=== PATIENT | male | born 1945 | race Two or more races ===

== ENCOUNTER 2021-02-11 20:40 | Emergency (ER) | payer MEDICARE, OTHER ==
[~2021-02-11] VITALS: Ht 182.9 cm; Wt 80.3 kg
--- NOTE | 2021-02-11 20:50 | NUR ---
BIBDAUGHTER FROM HOME WITH C/C OF CHEST PAIN FOR A WHOLE DAY THAT RADIATE TO LEFT ARM WITH NUMBNESS, CHEST PAIN NEVER RELIEVED BY NITRO X1 3 HOURS AGO FROM HOME, PT IS AA/O X4 NO SIGN OF RESPIRATORY DISTRESS ABLE TO WALK, HOOKED TO MONITOR AND P OX WILL CONT TO MONITOR
--- NOTE | 2021-02-11 21:10 | NUR ---
LAB AT BED SIDE BLOOD DRAW DONE
[2021-02-11] MEDS ORDERED: NITROGLYCERIN 0.4 MG/TAB BOTTLE ONE (21:21)
[2021-02-11] MEDS ORDERED: ASPIRIN 81 MG TAB.CHEW ONE (21:21)
[2021-02-11 21:22] LABS: BASOPHILS # (AUTO) 0.1 K/uL (0.0-0.2); BASOPHILS % (AUTO) 0.9 % (0.0-2.0); EOSINOPHILS % (AUTO) 3.6 % (0.0-6.0); HEMATOCRIT 40 % (39-51); HEMOGLOBIN 13.5 g/dL (13.5-17.5); LYMPHOCYTES # (AUTO) 1.5 K/uL (0.8-4.8); LYMPHOCYTES % (AUTO) 22.9 % (20.0-44.0); MEAN CORPUSCULAR HGB CONC 33 g/dl (31.0-36.0); MEAN CORPUSCULAR VOLUME 86 fL (80-96); MONOCYTES # (AUTO) 0.5 K/uL (0.1-1.30); NEUTROPHILS # (AUTO) 4.4 K/uL (1.8-8.9); NEUTROPHILS % (AUTO) 65.6 % (43.0-81.0); PLATELET COUNT (AUTO) 271 K/uL (150-450); RED BLOOD CELL COUNT(AUTO) 4.68 MIL/uL (4.5-6.0); WHITE BLOOD COUNT (AUTO) 6.8 K/uL (4.3-11.0)
[2021-02-11] MEDS ORDERED: NITROGLYCERIN 0.4 MG/TAB BOTTLE SL ONE (21:30)
[2021-02-11] MEDS ORDERED: ASPIRIN 81 MG TAB.CHEW PO ONE (21:30)
[2021-02-11 21:31] LABS: CALCIUM, SERUM 8.4 mg/dL (8.5-10.1); CARBON DIOXIDE 25 mmol/L (21-32); CHLORIDE 103 mmol/L (98-107); CREATININE 1.1 mg/dL (0.6-1.3); GLUCOSE 119 mg/dL (74-106); POTASSIUM 4.1 mmol/L (3.5-5.1); SODIUM SERUM 139 mmol/L (136-145); UREA NITROGEN, BLOOD 20 mg/dL (7-18)
[2021-02-11] MEDS ORDERED: IOHEXOL-350 100 ML VIAL IV ONE (22:50)
[2021-02-11] MEDS ORDERED: IV NS 0.9% 250 ML IV ONE (22:50)
[2021-02-11] MEDS ORDERED: IV NS 0.9% 500 ML BAG IV ONE (23:00)
[2021-02-12 00:57] VITALS: BP 129/82
--- NOTE | 2021-02-12 00:57 | NUR ---
Patient discharged to home in stable condition. Written and verbal after care instructions given. Patient verbalizes understanding of instruction.IV removed. Catheter intact and site benign. Pressure and 4x4 applied to site. No bleeding noted.Mr Morataya is ambulatory with a steady gait
== END 2021-02-12 00:58 | disposition home or self-care (01) ==
LOC: ER 20:40
DX: J40 Bronchitis, not specified as acute or chronic (principal); F41.9 Anxiety disorder, unspecified; I10 Essential (primary) hypertension; I25.2 Old myocardial infarction; E78.5 Hyperlipidemia, unspecified; Z98.890 Other specified postprocedural states
CPT/HCPCS: 36415; 71045; 71275; 80048; 84484; 85025; 85378; 93005 ×3; 99285; J7040; J7050; Q9967

== ENCOUNTER 2023-10-05 22:34 | Emergency (ER) | payer MEDICARE, OTHER ==
[~2023-10-05] VITALS: Ht 177.8 cm; Wt 79.4 kg
[2023-10-05] MEDS ORDERED: TDAP [DIPH/PERTUSSIS/TET] 0.5 ML VIAL IM ONE (23:34)
[2023-10-05] MEDS: TDAP [DIPH/PERTUSSIS/TET] 0.5 ML VIAL IM ONE (23:35)
[2023-10-06 00:24] LABS: BASOPHILS # (AUTO) 0.1 K/uL (0.0-0.2); EOSINOPHILS # (AUTO) 0.2 K/uL (0.0-0.7); HEMATOCRIT 39 % (39-51); HEMOGLOBIN 13.1 g/dL (13.5-17.5); LYMPHOCYTES # (AUTO) 1.9 K/uL (0.8-4.8); LYMPHOCYTES % (AUTO) 25.1 % (20.0-44.0); MEAN CORPUSCULAR HEMOGLOBIN 29 PG (26.0-33.0); MEAN CORPUSCULAR HGB CONC 34 g/dl (31.0-36.0); MEAN CORPUSCULAR VOLUME 85 fL (80-96); MONOCYTES # (AUTO) 0.6 K/uL (0.1-1.30); MONOCYTES % (AUTO) 8.2 % (2.0-12.0); NEUTROPHILS # (AUTO) 4.7 K/uL (1.8-8.9); NEUTROPHILS % (AUTO) 62.7 % (43.0-81.0); PLATELET COUNT (AUTO) 217 K/uL (150-450); RED BLOOD CELL COUNT(AUTO) 4.51 MIL/uL (4.5-6.0); RED CELL DISTRIBUTION WIDTH 13.3 % (11.5-15.0); WHITE BLOOD COUNT (AUTO) 7.5 K/uL (4.3-11.0)
[2023-10-06 00:52] LABS: CALCIUM, SERUM 8.2 mg/dL (8.5-10.1); CARBON DIOXIDE 28 mmol/L (21-32); CHLORIDE 107 mmol/L (98-107); GLUCOSE 111 mg/dL (74-106); SODIUM SERUM 141 mmol/L (136-145); UREA NITROGEN, BLOOD 15 mg/dL (7-18)
[2023-10-06 01:03] LABS: ALANINE AMINOTRANSFERASE 37 U/L (12-78); ALBUMIN 3.4 g/dL (3.4-5.0); ALKALINE PHOSPHATASE 84 U/L (46-116); ASPARTATE AMINOTRANSFERASE 22 U/L (15-37); BILIRUBIN,TOTAL 0.5 mg/dL (0.2-1.0); NT-PRO BNP 142 pg/mL (0-125)
[2023-10-06] MEDS ORDERED: BACITRACIN ZINC OINT PACKET 1 EA PACKET TP ONE (01:31)
[2023-10-06] MEDS: BACITRACIN ZINC OINT PACKET 1 EA PACKET TP ONE (01:32)
[2023-10-06 01:43] VITALS: BP 132/78; TEMP 98; O2SAT 98
== END 2023-10-06 01:49 | disposition home or self-care (01) ==
LOC: ER 22:39
DX: S02.2XXA Fracture of nasal bones, initial encounter for closed fracture (principal); I10 Essential (primary) hypertension; E78.5 Hyperlipidemia, unspecified; F41.9 Anxiety disorder, unspecified; W18.30XA Fall on same level, unspecified, initial encounter; Y93.89 Activity, other specified; Y92.89 Other specified places as the place of occurrence of the external cause; Y99.8 Other external cause status
CPT/HCPCS: 99285; 70450; 71045; 90471; 93005; 90715; 70486; 36415; 85025; 80053; 84484; 83880; A6403